=== PATIENT | male | born 1990 | race Caucasian/White ===

== ENCOUNTER 2024-03-19 02:01 | Emergency (ER) | payer BC ==
[2024-03-19] MEDS: predniSONE 10 MG Tab PO ONE (02:23)
== END 2024-03-19 02:25 | disposition home or self-care (01) ==
LOC: MW.ED 02:01
DX: J40 Bronchitis, not specified as acute or chronic (principal); Z88.0 Allergy status to penicillin
CPT/HCPCS: 99283; A9270